=== PATIENT | female | born 1980 | race Caucasian/White ===

== ENCOUNTER → 2020-05-08 | Day surgery (SDC) | payer OTHER ==
[2020-05-05 14:10] LABS: BASOPHILS % 0.4 % (0.0-1.0); EOSINOPHILS # (AUTO) 0.2 (0.0-0.4); EOSINOPHILS % 1.6 % (0.0-6.0); HEMOGLOBIN 12.5 g/dL (12.0-16.0); LYMPHOCYTES # (AUTO) 2.4 (1.0-3.2); LYMPHOCYTES % 22.8 % (18.0-39.1); MEAN CORPUSCULAR HEMOGLOBIN 30.9 pg (28-32); MEAN CORPUSCULAR HGB CONC 32.9 g/dL (31-35); MEAN CORPUSCULAR VOLUME 93.8 fL (81-99); MONOCYTES # (AUTO) 0.7 (0.2-0.8); MONOCYTES % 6.5 % (4.4-11.3); NEUTROPHILS # (AUTO) 7.2 (2.1-6.9); NEUTROPHILS % 68.3 % (38.7-80.0); PLATELET COUNT 267 x10e3/uL (140-360); RED BLOOD COUNT 4.05 x10e6/uL (3.6-5.1); RED CELL DISTRIBUTION WIDTH 12.1 % (11.7-14.4)
[~2020-05-08] MED LIST: CEFAZOLIN SOD 1 GM/NS 50ML 100 ML IV ONE; DEXAMETHASONE SOD PHOS INJ 4 MG/ML VIAL ONE; FENTANYL CITRATE/PF 100MCG/2 ML INJ ONE; IBUPROFEN200 MG PO; LIDOCAINE HCL 2% LOCAL INJ 5 ML SDV VIAL INJ ONE; MIDAZOLAM HCL 2 MG/2 ML VIAL ONE; MISOPROSTOL 100 MCG TAB PO ONE; MULTI-VITAMIN1 EACH PO; ONDANSETRON HCL INJ 2MG/ML 2ML 2 MG/ML VIAL ONE; OXYTOCIN INJ 10 UNIT/ML VIAL ONE; PROBIOTIC & AC1 EACH PO; PROPOFOL IV EMULSION 10 MG/ML 20 ML VIAL ONE; RHO IMMUNE GLOBULIN ONE; SEVOFLURANE INHAL SOLN 250 ML PEN BTL ONE; SILVER NITRATE SWABS ONE; tylenol PO
[2020-05-08 13:55] VITALS: BP 115/73
--- NOTE | 2020-05-08 14:34 | Operative Report ---
DATE OF PROCEDURE: 05/08/2020 SURGEON: Shelton Waggoner MD PREOPERATIVE DIAGNOSIS: Missed O-negative blood type. POSTOPERATIVE DIAGNOSIS: Missed , O-negative blood type. TITLE OF PROCEDURE: Dilatation, suction and curettage. ANESTHESIA: General with Dr. Connors and Kelsy, clinical project assistant. INDICATION FOR OPERATION: The patient is a 40-year-old, 6, para 3-0-2-3 with last menstrual period on January 24, 2020, who presents with missed . There seems to be a blighted ovum on sono done on April 06, 2020. There was no heart tones and no pole. However, few weeks earlier, there had been heart tones noted and then she returned after failing to pass the embryo on her own and was noted in our office to have no heart tones and no embryonic tissue, but just gestational sac 4 cm in size. She is therefore taken to the operating room at this time for D and C for missed . She is also Rh negative and will receive RhoGAM intra or postoperatively. FINDINGS OF SURGERY: The uterus was 12-week size, anteverted. The cervix was slightly open. There were no adnexal masses noted. DESCRIPTION OF PROCEDURE: The patient was taken to the operating room and placed on the table in a supine position. General anesthesia was administered. The patient was then placed in the lithotomy position. The perineum was prepared and draped in the usual sterile manner. Pelvic exam revealed a 12-week size anteverted uterus with a slightly open cervix. A weighted speculum was placed in the posterior vaginal wall after the bladder was drained by the in and out catheterization. Then, with the aid of a right angle retractor, the anterior lip of the cervix was grasped with ring forceps. The cervix was slightly open and was able to be dilated up to #37 with Aleman dilators. Then, a #12 suction curette was then inserted into the cervical os and into the endometrial cavity and tissue was obtained and sent to pathology for definitive diagnosis. Curettage was continued until the uterine cry was felt on all 4 burrows of the uterus. Then, the endometrial cavity was explored with a sharp curette. No further tissue was obtained. It was apparent that a good removal of all products of conception had occurred. At this point, the uterus became better contracted. IV Pitocin was given and with the uterus being well contracted, the procedure was deemed terminated. There were no complications noted. Estimated blood loss was 25 mL. The patient tolerated the procedure well. She was given 200 mcg of Cytotec rectally at the end of the procedure. She was then taken from the operating room to the recovery room in stable condition. MD MARYA Mccall/CIARA /[id number]
== END | disposition home or self-care (01) ==
LOC: OR 10:07
PROVIDERS: ATTEND Obstetrics & Gynecology
DX: O02.1 Missed abortion (principal); K21.9 Gastro-esophageal reflux disease without esophagitis; Z67.41 Type O blood, Rh negative; F41.9 Anxiety disorder, unspecified; F17.290 Nicotine dependence, other tobacco product, uncomplicated; Z88.5 Allergy status to narcotic agent; Z01.812 Encounter for preprocedural laboratory examination; Z11.59 Encounter for screening for other viral diseases
CPT/HCPCS: 36415; 59820; 81025; 85025; 86850; 86900; 88305; J0690; J1100; J1566; J2001; J2405; J2590; J2704; U0002; J2250; J3010